=== PATIENT | female | born 1975 | race Caucasian/White ===

== ENCOUNTER 2017-04-08 15:09 | Emergency (ER) | payer OTHER ==
[2017-04-08 15:43] LABS: URINE BILIRUBIN NEGATIVE (NEGATIVE); URINE BLOOD NEGATIVE (NEGATIVE); URINE GLUCOSE (UA) NORMAL (NORMAL); URINE KETONE TRACE (NEGATIVE); URINE LEUKOCYTE ESTERASE TRACE (NEGATIVE); URINE NITRATE NEGATIVE (NEGATIVE); URINE PROTEIN TRACE (NEGATIVE)
[2017-04-08 15:43] LABS: BASO % 0.2 % (0.1-1.2); EOS # 0.1 10_X3_uL (0.0-0.4); EOS % 0.8 % (0.7-5.8); GRAN # 8.2 10_X3_uL (1.6-6.1); GRAN % 67.8 % (34.0-71.1); HEMATOCRIT 45.8 % (34-45); HEMOGLOBIN 15.3 g/dL (11.2-15.7); LYMPH # 2.7 10_X3_uL (1.2-3.7); LYMPH % 22.7 % (19.3-51.7); MEAN CORPUSCULAR HEMOGLOBIN 29.1 pg (27.0-33.0); MEAN CORPUSCULAR HGB CONC 33.4 g/dL (32.0-36.0); MEAN CORPUSCULAR VOLUME 87.2 fL (79-95); MEAN PLATELET VOLUME 12.3 fl (7.5-11.5); MONO % 8.5 % (4.7-12.5); PLATELET COUNT 176 x10_3/uL (182-369); RED BLOOD COUNT 5.25 x10_6/uL (3.9-5.2); RED CELL DISTRIBUTION WIDTH 13.8 % (11.7-14.4)
[2017-04-08 15:58] LABS: URINE BACTERIA 2+ (NONE SEEN); URINE MUCUS 2+; URINE SQUAMOUS EPITHELIAL CELL >20 /[HPF] (NONE SEEN); URINE WBC 0-5 /[HPF] (0-5)
[2017-04-08 16:10] LABS: BLOOD UREA NITROGEN 24 mg/dL (7-18); CALCIUM 9.7 mg/dL (8.7-10.7); CARBON DIOXIDE 21 mmol/L (21-32); CREATININE 0.5 mg/dL (0.6-1.3); GLUCOSE,RANDOM 108 mg/dL (70-99); SODIUM 138 mmol/L (136-145)
== END 2017-04-08 16:57 | disposition home or self-care (01) ==
LOC: ER 15:09
PROVIDERS: Emergency Medicine
DX: R10.31 Right lower quadrant pain (principal); R11.0 Nausea; Z87.442 Personal history of urinary calculi; Z90.710 Acquired absence of both cervix and uterus; F17.210 Nicotine dependence, cigarettes, uncomplicated; Z88.5 Allergy status to narcotic agent; Z78.0 Asymptomatic menopausal state
CPT/HCPCS: 36415; 74150; 80048; 81001; 85025; 96374; 99070; 99284-25